=== PATIENT | female | born 1935 | race Asian ===

== ENCOUNTER → 2016-11-25 | Outpatient (CLI) | payer OTHER | END | disposition home or self-care (01) | LOC: RADPV 09:15 | PROVIDERS: ATTEND Internal Medicine | DX: R31.29 Other microscopic hematuria (principal) | CPT/HCPCS: 76770 ==

== ENCOUNTER 2019-11-05 11:41 | Emergency (ER) | payer MEDICARE, OTHER ==
[~2019-11-05] VITALS: Ht 157.5 cm; Wt 55.5 kg
[2019-11-05] MEDS ORDERED: AMLO2.5T96 PO (12:15)
[2019-11-05] MEDS ORDERED: METO25 PO (12:15)
[2019-11-05] MEDS ORDERED: SIMV-259 PO (12:15)
[2019-11-05] MEDS ORDERED: SIMV-260 PO (12:18)
[2019-11-05] MEDS ORDERED: METO-558 PO (12:18)
[2019-11-05] MEDS ORDERED: IBUPROFEN 400 MG TABLET PO ONE (13:45)
[2019-11-05] MEDS ORDERED: LIDOCAINE 1% 10 ML VIAL INJ ONE ×2 (14:00→18:30)
[2019-11-05] MEDS ORDERED: PERTUSS(ACELL),DIPH,TET VAC/PF 0.5 ML VIAL IM ONE (15:00)
[2019-11-05] MEDS ORDERED: FentaNYL CITRATE-PF 100 MCG/2 ML VIAL IVP ONE ×2 (15:00→15:15)
[2019-11-05 20:10] VITALS: BP 139/65
== END 2019-11-05 21:10 | disposition home or self-care (01) ==
LOC: EMS 11:43
DX: S52.502A Unspecified fracture of the lower end of left radius, initial encounter for closed fracture (principal); S63.015A Dislocation of distal radioulnar joint of left wrist, initial encounter; E78.00 Pure hypercholesterolemia, unspecified; I10 Essential (primary) hypertension; W19.XXXA Unspecified fall, initial encounter; Y93.89 Activity, other specified; Y92.89 Other specified places as the place of occurrence of the external cause; Y99.8 Other external cause status
CPT/HCPCS: 25605; 73090; 73100; 73110; 73130; 90471; 90715; 99285; J3010; J3490